=== PATIENT | male | born 1935 | race Hispanic/Latino ===

== ENCOUNTER 2017-05-23 13:38 | Emergency (ER) | payer MEDICAID, SELFPAY ==
--- NOTE | 2017-05-23 14:27 | RAD ---
CHEST 2 VIEWS: Date: 05/23/17 HISTORY: Cough. COMPARISON: Chest 1 view dated 11/30/16. FINDINGS: There is layering right pleural effusion, similar. There are linear opacities left lung base. No pneu mothorax. Cardiac silhouette and mediastinal contours similar. IMPRESSION: 1. No significant change. Layering right effusion and compressive atelectasis. 2. Mild atelectasis left lung base. POS: [facility]
[2017-05-23 14:41] LABS: Hemoglobin 14.4 g/dL (14.0-18.0); Mean Corpuscular HGB CONC 33.8 g/dL (32.0-36.0); Mean Corpuscular Hemoglobin 33.3 pg (27.0-31.0); Mean Corpuscular Volume 98.6 fl (80.0-94.0); Mean Platelet Volume 8.8 fL (7.4-10.4); Platelet Count 146 thou/uL (130-400); RBC Distribution Width 12.6 % (11.5-14.5); Red Blood Cell (RBC) Count 4.31 mill/uL (4.70-6.10)
[2017-05-23 15:00] LABS: Band 4 % (5-11); Eosinophils 5 % (0-10); Lymphocytes 4 % (21-51); MDiff Complete? YES; Monocytes 9 % (0-10); Neutrophil 78 % (42-75); PLT Morphology Comment Appears Adequate
[2017-05-23 15:01] LABS: ALT (SGPT) 22 U/L (8-55); AST (SGOT) 28 U/L (5-34); Albumin 3.5 g/dL (3.4-4.8); Alkaline Phosphatase 82 U/L (40-150); Anion Gap 10 mmol/L (10-20); BUN (Urea Nitrogen) 19 mg/dL (8.4-25.7); Bilirubin, Total 0.7 mg/dL (0.2-1.2); Calc. Creatinine Clearance 0 mL/min (70-130); Calcium 8.8 mg/dL (7.8-10.44); Carbon Dioxide 28 mmol/L (23-31); Chloride 103 mmol/L (98-107); Estimated GFR-MDRD 65; Globulin 3.1 g/dL (2.4-3.5); Glucose 77 mg/dL (83-110); Potassium 4.4 mmol/L (3.5-5.1); Protein, Total 6.6 g/dL (5.8-8.1); Sodium 137 mmol/L (136-145)
[2017-05-23] MEDS ORDERED: traMADol HCl 50 MG TAB ONE (17:54)
--- NOTE | 2017-05-23 18:28 | RAD ---
TWO VIEWS OF THE LEFT HIP 05/23/17 COMPARISON: None. HISTORY: Fall with left hip pain. FINDINGS: Two views left hip shows no evidence of acute fracture or dislocation. No significant degenerative ch anges are seen. Vascular calcifications are present. IMPRESSION: Unremarkable exam. POS: [facility]
[2017-05-23 19:05] LABS: Troponin I 0.016 ng/mL (< 0.028)
--- NOTE | 2017-05-23 19:17 | RAD ---
THREE VIEWS LUMBOSACRAL SPINE 05/23/17 COMPARISON: None. HISTORY: Fall with back and left hip pain. FINDINGS: Three views of the lumbosacral spine shows normal height and alignment of the vertebral bodies withou t fracture or subluxation. The intervertebral discs are narrowed in the lower lumbosacral spine. Mode rate osteophytes are seen throughout the lumbar spine. Posterior facet arthrosis is seen throughout t he lumbar spine. IMPRESSION: Moderate degenerative changes of the lumbar spine without acute osseous abnormality. POS: [facility]
--- NOTE | 2017-05-23 19:25 | CT ---
CT OF THE BRAIN WITHOUT CONTRAST: 05/23/17 COMPARISON: None. HISTORY: Flu-like symptoms with head trauma. Headache. TECHNIQUE: Multiple contiguous axial images were obtained in a CT of the brain without contrast. FINDINGS: There is remote infarction in the left basal ganglia. There are scattered hypodensities in the subcor tical and periventricular white matter likely secondary to small vessel ischemic disease. No new larg e confluent infarction is seen. There is no evidence of hydrocephalus, intracranial hemorrhage or ext ra-axial fluid collection. The calvarium and overlying soft tissues are unremarkable. The visualized paranasal sinuses and masto id air cells are well aerated. IMPRESSION: No evidence of acute intracranial abnormality. POS: [facility]
--- NOTE | 2017-05-23 19:40 | CT ---
CT CERVICAL SPINE WITHOUT CONTRAST 05/23/17 COMPARISON: None. HISTORY: Headache and neck pain after trauma. Flu-like symptoms. TECHNIQUE: Multiple contiguous axial images were obtained in a CT of the cervical spine without contrast. Sagitt al and coronal reformats were performed. FINDINGS: There are moderate to severe degenerative changes throughout the cervical spine. The vertebral bodies demonstrate normal height and alignment without acute or subluxation. No prevertebral soft tissue sw elling is seen. The posterior facets are well aligned. Normal alignment of the skull base with the cervical spine is seen. IMPRESSION: Degenerative changes of the cervical spine without acute osseous abnormality. POS: [facility]
[2017-05-23 19:45] LABS: Bilirubin Negative (Negative); Blood, Urine Negative (Negative); Clarity CLEAR (Clear); Glucose, Urine (Dipstick) Negative (Negative); Leukocyte Small (Negative); Nitrite Positive (Negative); Protein, Urine (Dipstick) Negative (Neg-Trace); Specific Gravity, Urine 1.012 (1.002-1.036); pH, Urine 6.5 (5.0-9.0)
[2017-05-23 19:47] LABS: Bacteria/HPF 2+ HPF (None Seen); Hyaline Casts/LPF 0-3 HYALINE CAST LPF (0-3 Hyaline); RBC/HPF None Seen HPF (0-3); Squamous Epithelial 0-3 HPF (0-3)
== END 2017-05-23 19:47 | disposition home or self-care (01) ==
LOC: ERS 13:38
DX: R05 Cough (principal); E78.5 Hyperlipidemia, unspecified; I10 Essential (primary) hypertension; F32.9 Major depressive disorder, single episode, unspecified; M79.1 Myalgia; R51 Headache; I25.2 Old myocardial infarction; Z87.891 Personal history of nicotine dependence
CPT/HCPCS: 36415; 70450; 71046; 72100; 72125; 80053; 81003; 81015; 82553; 83605; 84484; 85025; 87077; 87086; 87186

== ENCOUNTER 2018-05-25 17:42 | Emergency (ER) | payer MEDICARE, MEDICAID ==
[2018-05-25 19:17] LABS: #Lymphocytes 0.8 thou/uL (1.20-3.40); #Monocytes 0.5 thou/uL (0.11-0.59); #Neutrophils 6.1 thou/uL (1.40-6.50); %Basophils 0.4 % (0.0-1.0); %Eosinophils 0.4 % (0.0-10.0); %Monocytes 6.9 % (0.0-10.0); %Neutrophils 81.3 % (42.0-75.0); Hemoglobin 15.1 g/dL (14.0-18.0); Mean Corpuscular HGB CONC 32.5 g/dL (32.0-36.0); Mean Corpuscular Hemoglobin 31.9 pg (27.0-31.0); Mean Platelet Volume 8.8 fL (7.4-10.4); Platelet Count 173 thou/uL (130-400); RBC Distribution Width 12.2 % (11.5-14.5); Red Blood Cell (RBC) Count 4.75 mill/uL (4.70-6.10); White Blood Cell (WBC) Count 7.5 thou/uL (4.8-10.8)
--- NOTE | 2018-05-25 19:20 | RAD ---
AP VIEW CHEST: 05/25/2018 HISTORY: Fall with chest pain. COMPARISON: 11/30/2016 FINDINGS: AP view chest demonstrates sternotomy wires seen. Cardiomegaly is noted. There is a prosthetic card iac valve seen. Small bilateral pleural effusions are seen. Mild pulmonary vascular congestion is seen. IMPRESSION: 1. Small bilateral pleural effusions and pulmonary vascular congestion is seen. 2. Bibasilar areas of patchy density, possibly representing areas of atelectasis and/or pneumonia. POS: [facility]
--- NOTE | 2018-05-25 19:23 | CT ---
CT BRAIN: HISTORY: Fall with head trauma. COMPARISON: 05/23/2017 TECHNIQUE: Noncontrast enhanced CT images of the brain obtained. FINDINGS: Noncontrast enhanced CT images of the brain demonstrate diffuse cortical atrophy and deep white matte r ischemic changes. An old area of stroke is seen in the left basal ganglion. No evidence of acute intracranial masses, hemorrhages, or strokes is seen. No evidence of subdural or epidural hematoma is seen. The calvarium is unremarkable. IMPRESSION: 1. Cortical atrophy and old strokes. 2. No acute intracranial pathology is seen. POS: [facility]
[2018-05-25 19:26] LABS: Prothrombin Time 22.6 SEC (12.0-14.7)
[2018-05-25 19:37] LABS: ALT (SGPT) 21 U/L (8-55); AST (SGOT) 27 U/L (5-34); Albumin 3.8 g/dL (3.4-4.8); Alkaline Phosphatase 93 U/L (40-150); Anion Gap 12 mmol/L (10-20); BUN (Urea Nitrogen) 20 mg/dL (8.4-25.7); Bilirubin, Total 0.7 mg/dL (0.2-1.2); CK (CPK) 48 U/L (30-200); Calc. Creatinine Clearance 0 mL/min (70-130); Calcium 9.4 mg/dL (7.8-10.44); Carbon Dioxide 28 mmol/L (23-31); Chloride 103 mmol/L (98-107); Estimated GFR-MDRD 67; Globulin 3.3 g/dL (2.4-3.5); Glucose 105 mg/dL (83-110); Lipase 11 U/L (8-78); Potassium 4.5 mmol/L (3.5-5.1); Protein, Total 7.1 g/dL (5.8-8.1); Sodium 138 mmol/L (136-145)
[2018-05-25] MEDS ORDERED: traMADol HCl 50 MG TAB ONE (21:35)
== END 2018-05-25 21:53 | disposition home or self-care (01) ==
LOC: ERS 17:42
DX: S09.90XA Unspecified injury of head, initial encounter (principal); E78.5 Hyperlipidemia, unspecified; I10 Essential (primary) hypertension; I25.2 Old myocardial infarction; F32.9 Major depressive disorder, single episode, unspecified; W19.XXXA Unspecified fall, initial encounter
CPT/HCPCS: 36415; 70450; 71045; 80053; 82550; 83690; 83880; 84484; 85025; 85610; 85730; 93005

== ENCOUNTER 2018-12-15 11:51 | Emergency (ER) | payer MEDICARE, MEDICAID ==
[~2018-12-15 11:51] MED LIST: ISOVUE-370 76%-LOCM 1 ML ONE
[2018-12-15 12:23] LABS: #Eosinphils 0.1 thou/uL (0.0-0.7); #Lymphocytes 1.2 thou/uL (1.20-3.40); #Monocytes 0.6 thou/uL (0.11-0.59); #Neutrophils 2.8 thou/uL (1.40-6.50); %Basophils 0.4 % (0.0-1.0); %Eosinophils 2.6 % (0.0-10.0); %Lymphocytes 25.8 % (21.0-51.0); %Neutrophils 59.2 % (42.0-75.0); Mean Corpuscular HGB CONC 33.8 g/dL (32.0-36.0); Mean Corpuscular Hemoglobin 31.9 pg (27.0-31.0); Mean Corpuscular Volume 94.5 fL (78.0-98.0); Mean Platelet Volume 9.1 fL (7.4-10.4); Platelet Count 156 thou/uL (130-400); RBC Distribution Width 13.3 % (11.5-14.5); Red Blood Cell (RBC) Count 4.37 mill/uL (4.70-6.10); White Blood Cell (WBC) Count 4.8 thou/uL (4.8-10.8)
[2018-12-15 12:51] LABS: ALT (SGPT) 36 U/L (8-55); AST (SGOT) 40 U/L (5-34); Albumin 3.6 g/dL (3.4-4.8); Alkaline Phosphatase 93 U/L (40-150); Anion Gap 11 mmol/L (10-20); BUN (Urea Nitrogen) 19 mg/dL (8.4-25.7); Bilirubin, Total 0.7 mg/dL (0.2-1.2); Calc. Creatinine Clearance 0 mL/min (70-130); Calcium 8.6 mg/dL (7.8-10.44); Carbon Dioxide 29 mmol/L (23-31); Chloride 103 mmol/L (98-107); Estimated GFR-MDRD 64; Globulin 2.8 g/dL (2.4-3.5); Glucose 95 mg/dL (83-110); Potassium 3.9 mmol/L (3.5-5.1); Protein, Total 6.4 g/dL (5.8-8.1); Sodium 139 mmol/L (136-145)
--- NOTE | 2018-12-15 12:58 | RAD ---
Exam: Chest one view HISTORY:Chest pain, 2 days ago Comparison: 05/25/2018 FINDINGS: Cardiac silhouette:Enlarged. There are sternotomy wires. Prosthetic aortic valve. Aorta: Atherosclerosis. Pulmonary vessels: Slightly prominent Costophrenic angles: Clear LUNGS: Chronic changes. No masses or consolidation. Pneumothorax: None Osseous abnormalities: None IMPRESSION: 1. Atherosclerosis. 2. Cardiomegaly. 3. Patchy interstitial opacities likely representing chronic change.
[2018-12-15 13:31] LABS: INR-International Normal Ratio 2.6; Prothrombin Time 27.3 SEC (12.0-14.7)
--- NOTE | 2018-12-15 14:00 | CT ---
CT ANGIOGRAM THORAX AND ABDOMEN WITH IV CONTRAST AND 3-D RECONSTRUCTIONS CLINICAL INDICATION: Left-sided chest pain and arm pain started 2 days ago. Generalized weakness. COMPARISON: CT abdomen and pelvis on 11/30/2016. FINDINGS: Pulmonary arteries: No filling defect is seen within the central pulmonary arteries; the segmental an d subsegmental pulmonary arteries are not well opacified, but this study was tailored for evaluation of the thoracic aorta. Aorta and vessels: There is evidence of an aortic valve replacement. The thoracic and abdominal aorta are normal in caliber without evidence of an aortic dissection. There is a normal arrangement of the great vessels at the aortic arch which are patent. The celiac and superior mesenteric arteries ar e patent. The origin the K[place]IGH is partially obscured by dense vascular calcifications but otherwise patent. A single patent left renal artery is present. There is mild narrowing involving the proximal right renal artery. The visualized iliac arteries demonstrate atherosclerotic vascular calcifications but are patent. Lungs: A small right pleural effusion is again seen. There is an elliptical area of dense consolidati on seen at the right lung base which could be related to pneumonia or possibly chronic rounded area of atelectasis. There are groundglass densities as well as linear densities within the lungs bilatera lly. This examination was obtained in expiratory phase of imaging, and findings are probably attributable to volume loss. A calcified granuloma is seen in the left lower lobe with tiny thin-walled cyst in the left upper lob e. No definite discrete noncalcified pulmonary nodule is appreciated. Mediastinum: Median sternotomy wires are present. The heart is enlarged. No mediastinal lymphadenopat hy is seen. Thyroid gland: Limited visualized portion of the thyroid gland is within normal limits. Osseous structures: Degenerative changes are seen in the thoracic and lumbar spine Chest and abdominal wall: There is evidence of gynecomastia bilaterally. A fat-containing umbilical h ernia is partially imaged. Upper abdomen: Bilateral renal cysts are again seen with subcentimeter too small to characterize hypo dense lesions also seen in each kidney also statistically likely representing cysts. The liver, spleen, pancreas, and bilateral adrenal glands demonstrate a grossly normal appearance for arterial phase of imaging. No free fluid or fluid collection is seen in the abdomen. There is no lymphadenopathy. IMPRESSION: 1. Dense vascular calcifications are seen, but the thoracic and abdominal aorta are normal in caliber without evidence of an aortic dissection. 2. Cardiomegaly. 3. Elliptical area of dense consolidation in the right lower lobe. This may be attributable to pneumo angela versus chronic rounded area of atelectasis. Clinical correlation is recommended, and follow-up evaluation is also suggested.. 4. Small right pleural effusion. 5. Additional findings are as described above.
[2018-12-15 15:32] LABS: Bacteria/HPF None Seen HPF (None Seen); Bilirubin Negative (Negative); Blood, Urine 1+ (Negative); Clarity Clear (Clear); Glucose, Urine (Dipstick) Normal (Negative); Leukocyte Negative Leu/uL (Negative); Nitrite Negative (Negative); Protein, Urine (Dipstick) Negative (Neg-Trace); Squamous Epithelial None Seen HPF (0-3); Urobilinogen Normal mg/dL (Less than 2); WBC/HPF 0-3 HPF (0-3)
[2018-12-15] MEDS ORDERED: Acetaminophen 325 MG TAB ONE (17:32)
== END 2018-12-15 20:10 | disposition home or self-care (01) ==
LOC: ERS 11:51
DX: M54.9 Dorsalgia, unspecified (principal); R53.1 Weakness; E78.00 Pure hypercholesterolemia, unspecified; E78.5 Hyperlipidemia, unspecified; I10 Essential (primary) hypertension; R33.9 Retention of urine, unspecified; I25.2 Old myocardial infarction; F32.9 Major depressive disorder, single episode, unspecified
CPT/HCPCS: 36415; 51702; 71045; 71275; 80053; 81003; 81015; 83880; 84484; 85025; 85610; 93005; 96360; Q9966

== ENCOUNTER 2019-06-30 13:24 | Inpatient (IN) | payer MEDICARE, MEDICAID ==
--- NOTE | 2019-06-30 15:18 | RAD ---
PORTABLE CHEST 1 VIEW: Date: 06/30/2019 Time: 1422 hours HISTORY: Fever and cough. FINDINGS/IMPRESSION: Comparison made with exam of 12/15/2018. Changes of median sternotomy again seen. The heart size is stable. Right-sided small pleural effusion is present. No pneumothoraces or lobar consolidation identified. No evidence of nayeli pulmonary miko a. POS: [facility]
[2019-06-30 15:20] LABS: Hemoglobin 14.1 g/dL (14.0-18.0); Mean Corpuscular HGB CONC 33.2 g/dL (32.0-36.0); Mean Corpuscular Hemoglobin 31.1 pg (27.0-31.0); Mean Corpuscular Volume 93.8 fL (78.0-98.0); Mean Platelet Volume 9.7 fL (7.4-10.4); Platelet Count 138 thou/uL (130-400); Red Blood Cell (RBC) Count 4.55 mill/uL (4.70-6.10); White Blood Cell (WBC) Count 4.2 thou/uL (4.8-10.8)
[2019-06-30 15:37] LABS: ALT (SGPT) 85 U/L (8-55); AST (SGOT) 104 U/L (5-34); Albumin 3.6 g/dL (3.4-4.8); Alkaline Phosphatase 133 U/L (40-110); Anion Gap 11 mmol/L (10-20); BUN (Urea Nitrogen) 18 mg/dL (8.4-25.7); Bilirubin, Total 0.8 mg/dL (0.2-1.2); Calc. Creatinine Clearance 0 mL/min (70-130); Calcium 8.6 mg/dL (7.8-10.44); Carbon Dioxide 29 mmol/L (23-31); Chloride 101 mmol/L (98-107); Estimated GFR-MDRD 65; Glucose 92 mg/dL (83-110); Potassium 4.1 mmol/L (3.5-5.1); Protein, Total 6.6 g/dL (5.8-8.1); Sodium 137 mmol/L (136-145)
[2019-06-30 15:44] LABS: Band 3 % (5-11); Eosinophils 5 % (0-10); Lymphocytes 24 % (21-51); MDiff Complete? YES; Monocytes 9 % (0-10); Neutrophil 53 % (42-75); Platelet Morphology Comment Appears Adequate; RBC Morphology Normal; Reactive Lymphocytes 2 % (0-10)
--- NOTE | 2019-06-30 16:40 | CT ---
CT chest noncontrast HISTORY: Cough. Pneumonia. COMPARISON: 12/15/2018. FINDINGS: Small amount right pleural fluid is similar in appearance to the prior study. Chronic infil trate within the posterior base of the right lower lobe, containing some air bronchograms, is also unchanged. There is linear atelectasis within the right upper lobe. Minimal pericardial fluid at the anterior upper mediastinum. Dense calcification throughout the arter ial structures. Lack of contrast limits evaluation of the soft tissues. Cysts arise from the partially visualized kid neys on the inferior most images. There are prominent degenerative changes of the thoracic spine. 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 Large hemangioma within the T6 vertebra. IMPRESSION: Chronic right lower lobe infiltrate. Small amount right pleural fluid. Scattered areas of parenchymal scarring. Findings are stable compared to 12/15/2018 study. Prominent atherosclerosis.
[2019-06-30 16:55] LABS: INR-International Normal Ratio 1.8; Prothrombin Time 21.1 SEC (12.0-14.7)
--- NOTE | 2019-06-30 17:21 | CT ---
CT Brain WO Con History: Altered mental status. Fall. Comparison: CT brain May 25, 2018 Findings: No acute hemorrhage or infarct. No midline shift or mass effect. Ventricular size and extra -axial CSF spaces are normal. Calvarium is intact. Mild mucosal thickening of the maxillary sinuses. The mastoids are clear. Old left basal ganglia infarct along the external capsule. Globes are intact with calcification of the right sclera medial margin. Impression: No acute posttraumatic intracranial sequelae.
[2019-06-30] MEDS ORDERED: Doxycycline Hyclate 200 MG in Sodium Chloride 0.9% 250 ML 250 ML IVPB SCH (19:30)
[2019-06-30] MEDS ORDERED: Acetaminophen 325 MG TAB PO PRN (22:54)
[2019-06-30] MEDS ORDERED: Bacteriostatic Water 30 ML VIAL FS PRN (22:54)
[2019-06-30] MEDS ORDERED: Ondansetron PF 4 MG/2 ML Vial IVP PRN (22:54)
[2019-06-30] MEDS ORDERED: Ondansetron ODT 4 MG TAB SL PRN (22:54)
[2019-06-30] MEDS ORDERED: methylPREDNISolone Sod Succ/PF 125 MG/2 ML VIAL IVP SCH (23:00)
[2019-06-30 23:01] VITALS: BMI 31.0
[2019-07-01] MEDS ORDERED: Simvastatin 20 MG TAB PO SCH (00:15)
[2019-07-01] MEDS ORDERED: Alprazolam [Alprazolam Xr] 1 MG PO SCH (01:00)
[2019-07-01] MEDS ORDERED: FLU VACC TS2019-20(65YR UP)/PF 180 MCG/0.5 ML SYRINGE IM ONE (09:00)
[2019-07-01] MEDS ORDERED: Acetaminophen/Codeine 30-300mg Tablet PO PRN (09:16)
[2019-07-01] MEDS ORDERED: Ondansetron ODT 4 MG TAB PO PRN ×2 (09:16)
[2019-07-01] MEDS ORDERED: Ondansetron PF 4 MG/2 ML Vial IVP PRN ×2 (09:16)
[2019-07-01] MEDS ORDERED: hydrALAZINE 20 MG/ML VIAL SLOW IVP PRN (09:16)
--- NOTE | 2019-07-01 10:10 | HP ---
PRIMARY CARE PHYSICIAN: I am not sure who the primary care physician is. CHIEF COMPLAINT: Cough and congestion and fell a couple of days ago. HISTORY OF PRESENT ILLNESS: The history of present illness is extremely limited. It is taken from the patient's son, Darvin, over the phone. The patient is currently extremely sleepy and every time I talked to him, he will wake up for a minute and say "ya, ya" and then go right back to sleep. His grandson is also at the bedside, but he does not know any information. I spoke with aDrvin and he tells me that his father fell a couple of days ago. He says he was just walking and then just fell down. There was no mention of loss of consciousness. He says he believed he may have hurt himself. He thinks he fell and hit his elbow and his head. They also note that he has been having cough and congestion for about 4 days. They said that he was having some pain in his chest when he breathes. No fever. No chills. No nausea. No vomiting. Essentially, no other symptoms. He was evaluated in the ER here. They did a CT scan of the brain, which was essentially negative. They also did a chest x-ray as well as a CT scan of the chest, both of which showed possibly a chronic infiltrate in the right base versus atelectasis and is reported to have had no change from a previous x-ray. He was afebrile and his lab work was essentially unremarkable except for slightly elevated transaminases and he was placed in observation for further evaluation. REVIEW OF SYSTEMS: This is unobtainable as the patient is currently very sleepy. PAST MEDICAL HISTORY: Taken from the records and also discussion with the son and includes hypertension and hypercholesterolemia. PAST SURGICAL HISTORY: He has had a cholecystectomy; bypass surgery, two vessel; and prostate surgery. ALLERGIES: NO KNOWN DRUG ALLERGIES. SOCIAL HISTORY: He is a nonsmoker and nondrinker. He is , has 12 children. FAMILY HISTORY: No known heritable diseases. MEDICATIONS: Taken from the records and includes; 1. Warfarin 2 mg at bedtime. 2. Simvastatin 20 mg at bedtime. 3. Ditropan 5 mg at bedtime. 4. Omeprazole 20 mg daily. 5. Gabapentin 800 mg twice a day. 6. Lasix 20 mg daily. 7. Amiodarone 200 mg daily. 8. Alprazolam 1 mg at bedtime. 9. Tylenol no. 3 q.6 as needed. PHYSICAL EXAMINATION: GENERAL: He will wake up, but falls back to sleep. He appears to be in no acute distress. VITAL SIGNS: Blood pressure is 117/72, heart rate 66, respiratory rate of 20, and temperature is 97.8. HEENT: Pupils are equal, round, and reactive. Extraocular muscles are intact. Sclerae anicteric. Throat; no erythema, no exudates. NECK: No adenopathy. No bruits. LUNGS: Clear to auscultation. No wheezing. No rales. No rhonchi. CARDIOVASCULAR: He has a normal S1 and S2. No S3 or S4. No murmurs or clicks. No rubs. ABDOMEN: Obese, soft, nontender, and nondistended. Positive for bowel sounds. No rebound. No guarding. EXTREMITIES: nonpitting edema. No calf tenderness. No joint effusions. NEUROLOGIC: He is moving all extremities. SKIN AND INTEGUMENT: He has some chronic venous stasis changes, but otherwise negative. LABORATORY DATA: The CBC; the white blood cell count is 4.2, hemoglobin 14.1, hematocrit is 42.7, and platelet count is 138. INR is 1.8. Chemistry; sodium 137, potassium 4.1, chloride is 101, CO2 is 29, BUN of 18, creatinine 1.08, glucose is 92, alkaline phosphatase is 133, AST 104, and ALT is 85. ProBNP is 141. ASSESSMENT AND PLAN: 1. This is a pleasant 83-year-old gentleman, who suffered a fall. It appears as if he has had no significant sequelae as a result of the fall and also has been having some cough and congestion. CT of the chest is clear. It is possible he may have had some mild bronchitis. He will be admitted to observation, monitored overnight. We will continue treatment for bronchitis including the doxycycline and DuoNeb and steroids. 2. Status post fall. It is noted he is on Coumadin and we will monitor his INR. There was no evidence of any bleeding by the CT scan. 3. Hypertension. This appears to be clinically stable at this time. Reconciling continuous home medications and we will re-evaluate him later this afternoon. If he is more awake and alert and at his baseline, then I suspect he can be discharged home on an oral antibiotic and close outpatient followup. Job ID: [id number]
[2019-07-01] MEDS: Sodium Chloride 0.9% 1,000 ML IV SCH ×2 (10:13→21:30)
[2019-07-01 10:18] LABS: INR-International Normal Ratio 1.9; Prothrombin Time 21.4 SEC (12.0-14.7)
[2019-07-01] MEDS: Acetaminophen 325 MG TAB PO PRN ×2 (14:48→22:37)
[2019-07-01] MEDS: Warfarin Sodium 2 MG TAB PO SCH (18:00)
[2019-07-01] MEDS: Doxycycline 100 MG CAP PO SCH (21:29)
[2019-07-01] MEDS: Simvastatin 20 MG TAB PO SCH (21:30)
[2019-07-01] MEDS: Gabapentin 400 MG CAP PO SCH (21:30)
[2019-07-01] MEDS: Oxybutynin 5 MG TAB PO SCH (21:30)
[2019-07-01] MEDS: Alprazolam [Alprazolam Xr] 1 MG PO SCH (22:37)
[2019-07-02] MEDS: Sodium Chloride 0.9% 1,000 ML IV SCH (05:18)
[2019-07-02 06:15] LABS: INR-International Normal Ratio 1.9; Prothrombin Time 21.9 SEC (12.0-14.7)
[2019-07-02 07:53] LABS: #Lymphocytes 0.6 thou/uL (1.20-3.40); #Monocytes 0.7 thou/uL (0.11-0.59); #Neutrophils 4.9 thou/uL (1.40-6.50); %Basophils 0.3 % (0.0-1.0); %Eosinophils 0.1 % (0.0-10.0); %Lymphocytes 10.3 % (21.0-51.0); %Monocytes 10.8 % (0.0-10.0); %Neutrophils 78.5 % (42.0-75.0); Mean Corpuscular HGB CONC 32.8 g/dL (32.0-36.0); Mean Corpuscular Hemoglobin 31.4 pg (27.0-31.0); Mean Corpuscular Volume 95.7 fL (78.0-98.0); Mean Platelet Volume 9.3 fL (7.4-10.4); Platelet Count 134 thou/uL (130-400); Red Blood Cell (RBC) Count 4.14 mill/uL (4.70-6.10); White Blood Cell (WBC) Count 6.2 thou/uL (4.8-10.8)
[2019-07-02 08:01] LABS: Anion Gap 12 mmol/L (10-20); BUN (Urea Nitrogen) 20 mg/dL (8.4-25.7); Calc. Creatinine Clearance 79 mL/min (70-130); Calcium 8.2 mg/dL (7.8-10.44); Carbon Dioxide 25 mmol/L (23-31); Chloride 106 mmol/L (98-107); Estimated GFR-MDRD 85; Glucose 99 mg/dL (83-110); Potassium 3.7 mmol/L (3.5-5.1); Sodium 139 mmol/L (136-145)
[2019-07-02] MEDS: Amiodarone 200 MG TAB PO SCH (08:44)
[2019-07-02] MEDS: Gabapentin 400 MG CAP PO SCH ×2 (08:44→21:28)
[2019-07-02] MEDS: Furosemide 20 MG TAB PO SCH (08:44)
[2019-07-02] MEDS: Doxycycline 100 MG CAP PO SCH (08:44)
--- NOTE | 2019-07-02 09:09 | PDOC.HOSPP ---
- Subjective Encounter Date: 07/02/19 Encounter Time: 09:07 Subjective: Mr. Skinner was seen today in follow-up. He says he continues to have a sore throat, and cough. He is breathing a bit better. He was up to walk yesterday, but was very weak as reported by his nurse. - Objective Vital Signs & Weight: Vital Signs (12 hours) Temp Pulse Resp BP BP Pulse Ox 07/02/19 08:39 110/69 07/02/19 07:32 98 F 65 17 95 07/02/19 05:10 97.6 F 64 17 103/63 96 07/02/19 02:46 67 16 97 07/02/19 00:47 63 16 100 07/02/19 00:00 99.0 F 63 18 117/70 100 Weight Admit Weight 192 lb 7 oz Weight 192 lb 7 oz I&O: 07/01/19 07/02/19 07/03/19 06:59 06:59 06:59 Intake Total 1500 Output Total 471 Balance -471 1500 Result Diagrams: 07/02/19 07:38 07/02/19 07:38 Hospitalist ROS - Medication Medications: Active Medications Generic Name Dose Route Start Last Admin Trade Name Freq PRN Reason Stop Dose Admin Acetaminophen 650 mg 07/01/19 09:16 07/01/19 22:37 Tylenol PO 650 mg Q4H PRN Administration Headache/Fever/Mild Pain (1-3) Albuterol/Ipratropium 3 ml 07/01/19 13:00 07/02/19 02:46 Duoneb NEB 3 ml [id number] PORTIA Administration Amiodarone HCl 200 mg 07/02/19 09:00 07/02/19 08:44 Cordarone PO 200 mg DAILY PORTIA Administration Doxycycline Hyclate 100 mg 07/01/19 21:00 07/02/19 08:44 Vibramycin PO 100 mg BID PORTIA Administration Furosemide 20 mg 07/02/19 09:00 07/02/19 08:44 Lasix PO 20 mg DAILY PORTIA Administration Gabapentin 800 mg 07/01/19 21:00 07/02/19 08:44 Neurontin PO 800 mg BID PORTIA Administration Oxybutynin Chloride 5 mg 07/01/19 21:00 07/01/19 21:30 Ditropan PO 5 mg HS PORTIA Administration Alprazolam [ 1 each 07/01/19 21:00 07/01/19 22:37 Alprazolam Xr] 1 Mg PO 1 each HS PORTIA Administration Simvastatin 20 mg 07/01/19 21:00 07/01/19 21:30 Zocor PO 20 mg HS PORTIA Administration Sterile Water 2 ml 06/30/19 22:54 07/01/19 00:15 Bacteriostatic Water FS 2 ml PRN PRN Administration RECONSTITUTION Warfarin Sodium 2 mg 07/01/19 17:00 07/01/19 18:00 Coumadin PO 2 mg 1700 PORTIA Administration - Exam Eye: PERRL Heart: RRR, no murmur, no gallops, no rubs, normal peripheral pulses Respiratory: no rales, rhonchi (Bilateral wheezing and rhonchi), wheezes Gastrointestinal: soft, non-tender, non-distended, normal bowel sounds, no palpable masses, no hepatomegaly Extremities: no cyanosis, no edema Hosp A/P (1) Acute bronchitis Code(s): J20.9 - ACUTE BRONCHITIS, UNSPECIFIED Status: Acute (2) Hypertension Code(s): I10 - ESSENTIAL (PRIMARY) HYPERTENSION Status: Acute (3) Atrial fibrillation Code(s): I48.91 - UNSPECIFIED ATRIAL FIBRILLATION Status: Chronic (4) Chronic anticoagulation Code(s): Z79.01 - MCC (CURRENT) USE OF ANTICOAGULANTS Status: Chronic (5) History of heart valve replacement Code(s): Z95.2 - PRESENCE OF PROSTHETIC HEART VALVE Status: Chronic - Plan * Acute respiratory failure- due to bronchitis- this has not improved much overnight- will change his antibiotics to Rocephin and Azithromycin- and will need to monitor PT INR carefully due to the Azithromycin * Will add a one time dose of Prednisone * Will discontinue IV fluids * AFIB- his heart rate is stable * HTN- blood pressure is low normal * Generalized weakness- with recent fall- he is still quite weak- will continue PT/OT * Consideration for change to inpatient status, as patient is elderly and has not yet responded adequately to therapy for a safe discharge home.
[2019-07-02] MEDS ORDERED: Promethazine 25 MG TAB PO PRN (09:11)
[2019-07-02] MEDS ORDERED: predniSONE 20 MG TAB PO SCH (09:15)
[2019-07-02] MEDS: cefTRIAXone\\ROCEPHIN 1 GM in Sodium Chloride 0.9% 100 ML IVPB SCH (10:06)
[2019-07-02] MEDS: Guaifenesin DM 100-10/5 ML UDCUP PO PRN ×2 (10:07→17:08)
[2019-07-02] MEDS: Azithromycin 500 MG in Sodium Chloride 0.9% 250 ML 250 ML IVPB SCH (10:08)
[2019-07-02] MEDS: Benzonatate 100 MG CAP PO SCH ×2 (15:48→21:28)
[2019-07-02] MEDS: Warfarin Sodium 2 MG TAB PO SCH (16:21)
[2019-07-02] MEDS: Acetaminophen 325 MG TAB PO PRN (21:27)
[2019-07-02] MEDS: Alprazolam [Alprazolam Xr] 1 MG PO SCH (21:28)
[2019-07-02] MEDS: Simvastatin 20 MG TAB PO SCH (21:28)
[2019-07-02] MEDS: Oxybutynin 5 MG TAB PO SCH (21:28)
--- NOTE | 2019-07-03 02:14 | PDOC.EVN ---
Event Note - Event Note Event Note: Notified by RN, patient with sob and wheezing. On exam, he is found resting comfortably but audible wheezing. States he doesnt feel sob but does feel like his breathing is noisy. He denies any chest pain. States he feels congested and having a hard time bringing up phlegm. Has a productive cough. [place] better once sat upright but with diffuse inspiratory/expiratory wheezing. Last duo neb was 2 hrs ago. No significant improvement. Per family member his breathing has been "noisy" since earlier today. Will obtain CXR and Abg. Currently sats 94% on RA. He is on Abx, pred daily and lasix 20 mg daily. CXR concerning for CHF exacerbation, will give Lasix 20 mg IV x 1. Continue to monitor O2 sats. Continue duo nebs Q4H.
[2019-07-03 02:21] LABS: Actual Bicarbonate (HCO3a) 26.8 mEq/L (22-28); Base Excess (BEa) 2.2 mEq/L (-2.0 to +3.0); CO2 Tension 41.7 mmHg (35.0-45.0); Calcium, Ionized 1.11 mmol/L (1.12-1.30); Carboxyhemoglobin (COHb) 0.8 gm% (0.0-3.0); Hemoglobin (Hb) 13.1 g/dL (14.0-18.0); Potassium - ABG Lab 3.98 mmol/L (3.70-5.30); pH, Arterial 7.43 (7.35-7.45)
[2019-07-03 02:30] LABS: ALV-art Gradient 38.105 (0-20); O2 Tension (PaO2) 59.5 mmHg (> 60.0); Puncture Site RRA
[2019-07-03] MEDS ORDERED: Furosemide 20 MG/2 ML VIAL SLOW IVP SCH (02:45)
[2019-07-03 02:56] LABS: #Lymphocytes 0.6 thou/uL (1.20-3.40); #Monocytes 0.3 thou/uL (0.11-0.59); #Neutrophils 3.7 thou/uL (1.40-6.50); %Eosinophils 0.2 % (0.0-10.0); %Lymphocytes 12.4 % (21.0-51.0); %Monocytes 7.3 % (0.0-10.0); %Neutrophils 80.2 % (42.0-75.0); Hemoglobin 12.8 g/dL (14.0-18.0); Mean Corpuscular HGB CONC 33.1 g/dL (32.0-36.0); Mean Corpuscular Hemoglobin 31.2 pg (27.0-31.0); Mean Corpuscular Volume 94.3 fL (78.0-98.0); Mean Platelet Volume 9.6 fL (7.4-10.4); Platelet Count 125 thou/uL (130-400); White Blood Cell (WBC) Count 4.6 thou/uL (4.8-10.8)
[2019-07-03 03:11] LABS: Lactic Acid 1.4 mmol/L (0.5-2.2)
[2019-07-03 03:14] LABS: Anion Gap 11 mmol/L (10-20); BUN (Urea Nitrogen) 24 mg/dL (8.4-25.7); Calc. Creatinine Clearance 87 mL/min (70-130); Calcium 8.3 mg/dL (7.8-10.44); Carbon Dioxide 27 mmol/L (23-31); Chloride 107 mmol/L (98-107); Estimated GFR-MDRD Greater than 90; Glucose 101 mg/dL (83-110); Sodium 141 mmol/L (136-145)
[2019-07-03 06:32] LABS: INR-International Normal Ratio 2.1; Prothrombin Time 23.2 SEC (12.0-14.7)
--- NOTE | 2019-07-03 08:53 | RAD ---
Chest one view HISTORY: Dyspnea. Wheezing. COMPARISON: 06/30/2019. FINDINGS: Cardiac silhouette is magnified and upper limits of normal in size. Pulmonary vasculature i s now engorged with widespread reticulonodular interstitial prominence and patchy bilateral perihilar and bibasilar infiltrates. Blunting of the right lateral costophrenic angle. Mediastinum is midline with postoperative changes and aortic calcification. No lobar consolidation or evidence of pneumothorax. IMPRESSION: Pulmonary vascular congestion. Borderline cardiomegaly. Atherosclerosis.
[2019-07-03] MEDS: Gabapentin 400 MG CAP PO SCH ×2 (08:59→21:23)
[2019-07-03] MEDS: cefTRIAXone\\ROCEPHIN 1 GM in Sodium Chloride 0.9% 100 ML IVPB SCH (08:59)
[2019-07-03] MEDS: Furosemide 20 MG TAB PO SCH (08:59)
[2019-07-03] MEDS: Benzonatate 100 MG CAP PO SCH ×3 (08:59→21:23)
[2019-07-03] MEDS: Amiodarone 200 MG TAB PO SCH (08:59)
[2019-07-03] MEDS: Azithromycin 500 MG in Sodium Chloride 0.9% 250 ML 250 ML IVPB SCH (09:06)
--- NOTE | 2019-07-03 12:44 | PDOC.HOSPP ---
- Subjective Encounter Date: 07/03/19 Encounter Time: 08:45 Subjective: still has cough and is unable to clear secretions with rattling in his throat daughter from [place] at bedside no h/o travel or contact with sick people, he lives in [facility]. is healthy with no resp symptoms patient says he is feeling better and wants to go home no prior h/o choking while eating per daughter last pna was many years ago - Objective Vital Signs & Weight: Vital Signs (12 hours) Temp Pulse Resp BP BP Pulse Ox 07/03/19 12:04 98.0 F 67 18 111/61 89 L 07/03/19 09:10 94 L 07/03/19 08:11 98.0 F 70 16 105/68 94 L 07/03/19 06:47 66 18 92 L 07/03/19 05:01 98.7 F 65 20 99/67 96 07/03/19 04:54 69 16 95 07/03/19 02:35 97.7 F 65 17 129/80 96 07/03/19 00:54 62 16 92 L Weight Admit Weight 192 lb 7 oz Weight 192 lb 7 oz I&O: 07/02/19 07/03/19 07/04/19 06:59 06:59 06:59 Intake Total 1500 1070 Output Total 800 Balance 1500 270 Result Diagrams: 07/03/19 02:46 07/03/19 02:46 Hospitalist ROS - Medication Medications: Active Medications Generic Name Dose Route Start Last Admin Trade Name Freq PRN Reason Stop Dose Admin Acetaminophen 650 mg 07/01/19 09:16 07/02/19 21:27 Tylenol PO 650 mg Q4H PRN Administration Headache/Fever/Mild Pain (1-3) Albuterol/Ipratropium 3 ml 07/01/19 09:16 07/03/19 04:54 Duoneb NEB 3 ml Q4H PRN Administration SOB &/or Wheezing Albuterol/Ipratropium 3 ml 07/01/19 13:00 07/03/19 06:47 Duoneb NEB 3 ml [id number] PORTIA Administration Amiodarone HCl 200 mg 07/02/19 09:00 07/03/19 08:59 Cordarone PO 200 mg DAILY PORTIA Administration Benzonatate 100 mg 07/02/19 15:00 07/03/19 08:59 Tessalon PO 100 mg TID PORTIA Administration Furosemide 20 mg 07/02/19 09:00 07/03/19 08:59 Lasix PO 20 mg DAILY PORTIA Administration Gabapentin 800 mg 07/01/19 21:00 07/03/19 08:59 Neurontin PO 800 mg BID PORTIA Administration Guaifenesin/Dextromethorphan 15 ml 07/02/19 09:04 07/02/19 17:08 Robitussin Dm PO 15 ml Q4H PRN Administration Cough Azithromycin 500 mg/ Sodium 250 mls @ 250 mls/hr 07/02/19 10:00 07/03/19 09: 06 Chloride IVPB 250 mls 1000 PORTIA Administration Ceftriaxone Sodium 1 gm/ 100 mls @ 200 mls/hr 07/02/19 09:00 07/03/19 08:59 Sodium Chloride IVPB 100 mls 0900 PORTIA Administration Oxybutynin Chloride 5 mg 07/01/19 21:00 07/02/19 21:28 Ditropan PO 5 mg HS PORTIA Administration Alprazolam [ 1 each 07/01/19 21:00 07/02/19 21:28 Alprazolam Xr] 1 Mg PO 1 each HS PORTIA Administration Simvastatin 20 mg 07/01/19 21:00 07/02/19 21:28 Zocor PO 20 mg HS PORTIA Administration Sodium Chloride 10 ml 07/02/19 21:00 07/03/19 09:00 Flush - Normal Saline IVF 10 ml Q12HR PORTIA Administration Sterile Water 2 ml 06/30/19 22:54 07/01/19 00:15 Bacteriostatic Water FS 2 ml PRN PRN Administration RECONSTITUTION Warfarin Sodium 2 mg 07/01/19 17:00 07/02/19 16:21 Coumadin PO 2 mg 1700 PORTIA Administration - Exam General Appearance: awake alert Eye: PERRL, anicteric sclera ENT: no oropharyngeal lesions, moist mucosa Neck: supple, no JVD Heart: RRR, no murmur Respiratory: no rales, rhonchi, wheezes Gastrointestinal: soft, non-tender, non-distended, normal bowel sounds Extremities: no cyanosis, no edema Neurological: cranial nerve grossly intact, no focal deficits Psychiatric: normal affect, A&O x 3 Hosp A/P (1) Pneumonia Code(s): J18.9 - PNEUMONIA, UNSPECIFIED ORGANISM Status: Acute Qualifiers: Pneumonia type: aspiration pneumonia Aspiration pneumonia type: unspecified Laterality: right Lung location: lower lobe of lung Qualified Code(s): J69.0 - Pneumonitis due to inhalation of food and vomit (2) Acute respiratory failure with hypoxia Code(s): J96.01 - ACUTE RESPIRATORY FAILURE WITH HYPOXIA Status: Resolved (3) h/o avr Status: Chronic (4) Dyslipidemia Code(s): E78.5 - HYPERLIPIDEMIA, UNSPECIFIED Status: Chronic (5) Hypertension Code(s): I10 - ESSENTIAL (PRIMARY) HYPERTENSION Status: Chronic Qualifiers: Hypertension type: essential hypertension Qualified Code(s): I10 - Essential (primary) hypertension (6) Atrial fibrillation Code(s): I48.91 - UNSPECIFIED ATRIAL FIBRILLATION Status: Chronic Qualifiers: Atrial fibrillation type: paroxysmal Qualified Code(s): I48.0 - Paroxysmal atrial fibrillation - Plan old CT chest imagings were reviewed, has chr opacity in right lower zone has old left basal ganglia cva, unclear if he has aspiration issues, will get speech eval initial flu screen was -ve, will get viral pcr is on zithromax and ceftriaxone, will add steroids, nebs continue amiodarone, lasix, zocor, coumadin, neurontin and oxybutynin hemostable dc plan in am if stable d/w daughter in detail at bedside
[2019-07-03] MEDS: Guaifenesin DM 100-10/5 ML UDCUP PO PRN (13:55)
[2019-07-03] MEDS: Warfarin Sodium 2 MG TAB PO SCH (16:22)
[2019-07-03] MEDS: Oxybutynin 5 MG TAB PO SCH (21:23)
[2019-07-03] MEDS: Simvastatin 20 MG TAB PO SCH (21:23)
[2019-07-03] MEDS: Alprazolam [Alprazolam Xr] 1 MG PO SCH (21:24)
[2019-07-04] MEDS: Gabapentin 400 MG CAP PO SCH (08:12)
[2019-07-04] MEDS: Amiodarone 200 MG TAB PO SCH (08:12)
[2019-07-04] MEDS: Furosemide 20 MG TAB PO SCH (08:12)
[2019-07-04] MEDS: Benzonatate 100 MG CAP PO SCH (08:12)
[2019-07-04] MEDS: cefTRIAXone\\ROCEPHIN 1 GM in Sodium Chloride 0.9% 100 ML IVPB SCH (08:13)
[2019-07-04 10:35] VITALS: BP 103/63; TEMP 97.7
[2019-07-04] MEDS: Azithromycin 500 MG in Sodium Chloride 0.9% 250 ML 250 ML IVPB SCH (10:37)
--- NOTE | 2019-07-04 13:58 | DIS ---
DATE OF ADMISSION: 06/30/2019 DATE OF DISCHARGE: 07/04/2019 DISCHARGE DISPOSITION: To home. PRIMARY DISCHARGE DIAGNOSES: Pneumonia, acute respiratory failure with hypoxia resolved, history of aortic valve replacement, hypertension, dyslipidemia, and history of paroxysmal atrial fibrillation. PROCEDURES DONE DURING HOSPITALIZATION: CT chest without contrast done showed chronic right lower lobe infiltrate when compared to prior CAT scan done on 12/15/2018. A small amount of right pleural fluid seen. These findings were all stable when compared to the prior CAT scan. There is prominent atherosclerosis seen. CT brain showed no acute intracranial abnormality. Echo with 2D Doppler showed EF of 55%, normally functioning mechanical prosthetic valve in aortic position. Respiratory virus panel PCR done was positive for respiratory syncytial virus type B, was negative for all other viruses. He had a white count of 4.6, H and H 12 and 38, and platelet count 125. PT/INR 23 and 2.1. BUN 24 and creatinine 0.7. BNP 290. DISCHARGE MEDICATIONS: 1. Omnicef 300 mg p.o. twice daily for seven days. 2. DuoNeb q.i.d. for 10 days. 3. Coumadin 2 mg p.o. at bedtime. 4. Simvastatin 20 mg p.o. at bedtime. 5. Oxybutynin 5 mg p.o. at bedtime. 6. Omeprazole 20 mg p.o. daily. 7. Gabapentin 800 mg p.o. twice daily. 8. Lasix 20 mg daily. 9. Amiodarone 200 mg daily. 10. Xanax extended release 1 mg p.o. at bedtime. 11. Tylenol 3 q.6 hourly p.r.n. ALLERGIES: ALLERGIC TO VANCOMYCIN. DISCHARGE PLAN: The patient to follow up with his primary care physician at [facility] in 1 week. BRIEF COURSE DURING HOSPITALIZATION: The patient initially came to ER with complaints of cough and shortness of breath. He also apparently fell a few days prior to arrival. He has had these symptoms for 4 days prior to arrival. In view of this history and the patient being a little lethargic on arrival with confusion as well likely acute metabolic encephalopathy, the patient was admitted to hospital. He has had a CT chest done, which showed a chronic infiltrate in the right lung, which was similar to when compared to a prior CAT scan done in 2019. Also, the patient's echo did not reveal any significant valvular changes except for prosthetic mechanical valve, which was in the aortic position and was functioning normal. His influenza A and B antigens, nasopharyngeal swab was negative, but a respiratory virus panel PCR obtained was positive for respiratory syncytial virus type B. He has responded well during his brief stay here. He is advised to continue nebulizations on discharge and antibiotics for another week. He is hemodynamically stable and will be shortly discharged home. The patient is advised to follow up with his primary care physician in 1 week. Home health with PT will be arranged in the morning. He needs to continue all other medications as before. Prior to discharge, he was ambulating to the bedside commode and to the bathroom inside his room and is tolerating oral solid diet. I have given complete updates to patient's son prior to discharge. Job ID: [id number]
--- NOTE | 2019-07-06 11:20 | PQF ---
UMBERTO BROOKS VINAYA KUMAR MD [id number] -B- [id number] CLINICAL DOCUMENTATION CLARIFICATION FORM: POST DISCHARGE Addendum to original discharge summary date: ____ Late entry note date: __ DATE:07/06/2019 ATTN:TOM TORIBIO MD Please exercise your independent, professional judgment in responding to the clarification form. Clinical indicators are provided on the bottom of this form for your review Please check appropriate box(s): [ ] Aspiration Pneumonia [ x] Pneumonia CAP with prior viral illness [ ] Other diagnosis [ ] Unable to determine In addition, please specify: Present on Admission (POA): [ x ] Yes [ ] No [ ] Unable to determine For continuity of documentation, please document condition throughout progress notes and discharge summary. Thank You. CLINICAL INDICATORS - SIGNS / SYMPTOMS / LABS Cough and congestion and fell a couple of days ago-Documented in H&p on 06/29 by Sanjeev Sherman MD Still has cough and is unable to clear secretions with ratting in his throat- Documented in hospitalist progress note -07/02 by Tom Toribio MD Pneumonia Qualifiers; Pneumonia type:aspiration pneumonia, Aspiration pneumonia type : unspecified , Laterality:right, Lung location:Lower lobe of lung -Documented in hospitalist progress note -07/02 by Tom Toribio MD Old CT chest immagings were reviewed has chr opacity in right lower zone- Documented in hospitalist progress note -07/02 by Tom Toribio MD 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, unclear if he has aspiration issues , will get speech eval -Documented in hospitalist progress note -07/02 by Tom Toribio MD Acute hypoxic respiratory failure-Documented in hospitalist progress note - by Tom Toribio MD RISK FACTORS Pneumonia Qualifiers; Pneumonia type:aspiration pneumonia, Aspiration pneumonia type : unspecified , Laterality:right, Lung location:Lower lobe of lung -Documented in hospitalist progress note -07/02 by Tom Toribio MD TREATMENTS: On Zithromax and ceftriaxone will add steroids , nebs-Documented in hospitalist progress note -07/02 by Tom Toribio MD [employer] (This form is maintained as a part of the permanent medical record) 2014 [employer]. All Rights Reserved [email or web address]
--- NOTE | 2019-07-13 10:50 | PQF ---
UMBERTO BROOKS VINAYA KUMAR MD [id number] -B- [id number] CLINICAL DOCUMENTATION CLARIFICATION FORM: POST DISCHARGE Addendum to original discharge summary date: ____ Late entry note date: __ DATE:07/13/2019 ATTN: DES NIEVES MD Please exercise your independent, professional judgment in responding to the clarification form. Clinical indicators are provided on the bottom of this form for your review Please check appropriate box(s): HEART FAILURE: A. TYPE: [ ] Systolic / HFrEF [ ] Diastolic / HFpEF [ ] Combined Systolic / Diastolic B. ACUITY [ ] Acute [ ] Acute on Chronic [ ] Chronic [ x ] NO HEART FAILURE [ ] Other diagnosis [ ] Unable to determine In addition, please specify: Present on Admission (POA): [ ] Yes [ ] No [ ] Unable to determine For continuity of documentation, please document condition throughout progress notes and discharge summary. Thank You. CLINICAL INDICATORS - SIGNS / SYMPTOMS / LABS Nonpitting edema-documented in H&P on 06/29 by Sanjeev leal MD CXR concerning for CHF exacerbation -Documented in Event note By Jaimie SPRAGUE ECHO with 2D Doppler showed EF of 55% -Documented in discharge summary on 07/03 by Malu Torrez MD BNP-Documented in discharge summary on 07/03 by Malu Torrez MD RISKS: HTN-Documented in discharge summary on 07/03 by Malu Torrez MD History of paroxysmal atrial fibrillation -Documented in discharge summary on by Malu Torrez MD History of aortic valve replacement -Documented in discharge summary on 07/03 by Malu Torrez MD [employer] Win[employer] ViewerTREATMENTS: Will give lasix 20 mg IV x1--Documented in Event note By Jaimie SPRAGUE Continue to monitor O2 last--Documented in Event note By Jaimie SPRAGUE Lasix 20 mg daily-Documented in discharge summary on 07/03 by Malu Torrez MD (This form is maintained as a part of the permanent medical record) 2014 [employer]. All Rights Reserved [email or web address]
== END 2019-07-04 11:25 | disposition home health service (06) | DRG 193 ==
LOC: ERS 13:24 → T4-B 20:15 → OBSVTOIN 20:15
PROVIDERS: ADMIT Emergency Medicine; ATTEND Emergency Medicine
DX: J18.8 Other pneumonia, unspecified organism (principal); J96.01 Acute respiratory failure with hypoxia; G93.41 Metabolic encephalopathy; I10 Essential (primary) hypertension; E78.5 Hyperlipidemia, unspecified; J20.5 Acute bronchitis due to respiratory syncytial virus; I48.0 Paroxysmal atrial fibrillation; Z95.2 Presence of prosthetic heart valve; B97.4 Respiratory syncytial virus as the cause of diseases classified elsewhere; R26.9 Unspecified abnormalities of gait and mobility; I25.2 Old myocardial infarction; F32.9 Major depressive disorder, single episode, unspecified; Z90.49 Acquired absence of other specified parts of digestive tract; Z79.01 Long term (current) use of anticoagulants; Z88.1 Allergy status to other antibiotic agents
CPT/HCPCS: 36415; 70450; 71045; 71250; 80048; 80053; 82805; 83605; 83880; 85025; 85610; 87633; 87804; 90471; 90662; 93306; 94640; 96365; 96366; G0008; J0456; J0696; J1940; J2930; J3490; J7050; J7512; J7620

== ENCOUNTER 2019-09-01 12:54 | Outpatient (CLI) | payer MEDICARE, MEDICAID ==
[~2019-09-01 12:54] MED LIST changes: -ISOVUE-370 76%-LOCM 1 ML ONE; +Iopamidol 370 76% 100 ML VIAL ONE
--- NOTE | 2019-09-01 17:11 | CT ---
CT ABDOMEN AND PELVIS PERFORMED WITH AND WITHOUT CONTRAST ENHANCEMENT: History: Hematuria. Benign prostatic hyperplasia with lower urinary tract symptoms, microhematuria, U TI. Comparison: CT chest 06-30-2019, CT abdomen/pelvis performed 11-30-16. FINDINGS: There is persistent right sided pleural effusion and what appears to be rounded atelectasis within th e right lung base. There are some chronic appearing changes in the left base. The liver and spleen show no focal abnormalities. Liver has a somewhat unusual shape, possibly relate d to surgery or atrophy. The gallbladder is absent. The pancreas is atrophic. Small hypodensity withi n the spleen is compatible with a cyst and is stable. Right and left adrenal glands are normal. No renal calculi are demonstrated. There are hypodense lesi ons involving both kidneys and one small subcentimeter hyperdense area within the left kidney which m ay represent a small hemorrhagic cyst. All of these changes appear similar to the previous 2017 exam. There is no obstruction. There is no significant periaortic or mesenteric adenopathy. CT PELVIS PERFORMED WITH AND WITHOUT CONTRAST ENHANCEMENT: Bladder appears mildly distended. The prostate does not appear significantly enlarged. Fat containing right inguinal hernia is seen. No evidence of any significant adenopathy or mass. There are arthriti c changes of the spine. IMPRESSION: 1. Stable right sided pleural effusion and what appears to be rounded atelectasis of the right lower lobe. 2. Post cholecystectomy change. 3. Hypodensities involving both kidneys which are felt to be stable as compared to the 2017 study. No renal calculi or obstruction. POS: [facility]
== END 2019-09-01 12:55 | disposition home or self-care (01) ==
LOC: CT 12:54
PROVIDERS: ATTEND Urology
DX: N40.1 Benign prostatic hyperplasia with lower urinary tract symptoms (principal); R31.29 Other microscopic hematuria; J90 Pleural effusion, not elsewhere classified; N28.89 Other specified disorders of kidney and ureter; Z95.2 Presence of prosthetic heart valve; Z87.440 Personal history of urinary (tract) infections; Z90.49 Acquired absence of other specified parts of digestive tract
CPT/HCPCS: 74178; 82565; Q9967

== ENCOUNTER 2022-08-08 18:30 | Inpatient (IN) | payer MEDICARE, MEDICAID ==
[2022-08-08 19:40] LABS: #Lymphocytes 0.9 thou/uL (1.20-3.40); #Monocytes 0.5 thou/uL (0.11-0.59); #Neutrophils 2.7 thou/uL (1.40-6.50); %Basophils 0.9 % (0.0-1.0); %Eosinophils 0.6 % (0.0-10.0); %Lymphocytes 21.8 % (21.0-51.0); %Monocytes 12.1 % (0.0-10.0); %Neutrophils 64.7 % (42.0-75.0); Hemoglobin 14.3 g/dL (14.0-18.0); Mean Corpuscular HGB CONC 34.2 g/dL (32.0-36.0); Mean Corpuscular Hemoglobin 33.4 pg (27.0-31.0); Mean Corpuscular Volume 97.8 fl (78.0-98.0); Platelet Count 123 10x3/uL (130-400); RBC Distribution Width 13.1 % (11.5-14.5); Red Blood Cell (RBC) Count 4.29 mill/uL (4.70-6.10); White Blood Cell (WBC) Count 4.1 10x3/uL (4.8-10.8)
[2022-08-08 20:03] LABS: ALT (SGPT) Less than 7 U/L (8-55); AST (SGOT) 17 U/L (5-34); Albumin 3.3 g/dL (3.4-4.8); Alkaline Phosphatase 81 U/L (40-110); Anion Gap 11 mmol/L (10-20); BUN (Urea Nitrogen) 19 mg/dL (8.4-25.7); Bilirubin, Total 0.5 mg/dL (0.2-1.2); Calc. Creatinine Clearance 0 mL/min (70-130); Calcium 8.7 mg/dL (7.8-10.44); Carbon Dioxide 28 mmol/L (23-31); Chloride 104 mmol/L (98-107); Estimated GFR 84; Globulin 3.1 g/dL (2.4-3.5); Glucose 105 mg/dL (83-110); Potassium 4.1 mmol/L (3.5-5.1); Protein, Total 6.4 g/dL (5.8-8.1); Sodium 139 mmol/L (136-145)
[2022-08-08] MEDS ORDERED: cefTRIAXone (ROCEPHIN) 1 GM VIAL ONE (20:36)
[2022-08-08] MEDS ORDERED: Senokot S 8.6-50 MG TAB PO PRN (22:47)
[2022-08-08] MEDS ORDERED: Ondansetron ODT 4 MG TAB PO PRN (22:47)
[2022-08-08] MEDS ORDERED: Doxycycline 100 MG CAP PO SCH (23:00)
[2022-08-08 23:20] LABS: INR-International Normal Ratio 1.9
[2022-08-08 23:21] LABS: PTT 51.7 sec (22.9-36.1)
[2022-08-09 03:17] VITALS: BMI 31.9
[2022-08-09] MEDS: Furosemide 20 MG TAB PO SCH (08:05)
[2022-08-09] MEDS: Doxycycline 100 MG CAP PO SCH ×2 (08:05→20:33)
[2022-08-09 08:30] LABS: #Lymphocytes 0.9 thou/uL (1.20-3.40); #Monocytes 0.6 thou/uL (0.11-0.59); #Neutrophils 3.6 thou/uL (1.40-6.50); %Basophils 0.5 % (0.0-1.0); %Eosinophils 0.6 % (0.0-10.0); %Lymphocytes 18.3 % (21.0-51.0); %Monocytes 10.7 % (0.0-10.0); Hemoglobin 13.3 g/dL (14.0-18.0); Mean Corpuscular HGB CONC 32.6 g/dL (32.0-36.0); Mean Corpuscular Hemoglobin 31.3 pg (27.0-31.0); Mean Corpuscular Volume 95.8 fl (78.0-98.0); Platelet Count 133 10x3/uL (130-400); RBC Distribution Width 13.1 % (11.5-14.5); Red Blood Cell (RBC) Count 4.25 mill/uL (4.70-6.10); White Blood Cell (WBC) Count 5.1 10x3/uL (4.8-10.8)
[2022-08-09 08:50] LABS: Anion Gap 11 mmol/L (10-20); BUN (Urea Nitrogen) 16 mg/dL (8.4-25.7); Calc. Creatinine Clearance 85 mL/min (70-130); Calcium 8.6 mg/dL (7.8-10.44); Carbon Dioxide 26 mmol/L (23-31); Chloride 106 mmol/L (98-107); Estimated GFR 89; Glucose 86 mg/dL (83-110); Potassium 3.7 mmol/L (3.5-5.1); Sodium 139 mmol/L (136-145)
[2022-08-09] MEDS ORDERED: methylPREDNISolone Sod Succ 40 MG VIAL IVP SCH (09:00)
[2022-08-09 13:21] LABS: INR-International Normal Ratio 1.5; Prothrombin Time 18.5 sec (12.0-14.7)
[2022-08-09] MEDS ORDERED: Furosemide 40 MG/4 ML VIAL SLOW IVP SCH (15:30)
[2022-08-09] MEDS ORDERED: Warfarin Sodium 2 MG TAB PO SCH (17:00)
[2022-08-09] MEDS: Acetaminophen 325 MG TAB PO PRN (17:20)
[2022-08-09] MEDS: cefTRIAXone\\ROCEPHIN 1 GM in Sodium Chloride 0.9% 100 ML IVPB SCH (20:31)
[2022-08-09] MEDS: Benzonatate 100 MG CAP PO SCH (20:33)
[2022-08-09] MEDS: Atorvastatin Calcium 10 MG TAB PO SCH (20:33)
[2022-08-09] MEDS ORDERED: ALPRAZOLAM 1 MG PO SCH (21:00)
[2022-08-10 06:50] LABS: #Lymphocytes 0.9 thou/uL (1.20-3.40); #Monocytes 0.7 thou/uL (0.11-0.59); #Neutrophils 4.5 thou/uL (1.40-6.50); %Basophils 0.4 % (0.0-1.0); %Eosinophils 0.2 % (0.0-10.0); %Monocytes 11.1 % (0.0-10.0); %Neutrophils 73.4 % (42.0-75.0); Hemoglobin 14.5 g/dL (14.0-18.0); Mean Corpuscular HGB CONC 33.1 g/dL (32.0-36.0); Mean Corpuscular Hemoglobin 31.5 pg (27.0-31.0); Mean Corpuscular Volume 95.1 fl (78.0-98.0); Platelet Count 152 10x3/uL (130-400); RBC Distribution Width 12.9 % (11.5-14.5); Red Blood Cell (RBC) Count 4.59 mill/uL (4.70-6.10); White Blood Cell (WBC) Count 6.2 10x3/uL (4.8-10.8)
[2022-08-10 07:00] LABS: INR-International Normal Ratio 1.3; Prothrombin Time 16.9 sec (12.0-14.7)
[2022-08-10 07:10] LABS: Anion Gap 14 mmol/L (10-20); BUN (Urea Nitrogen) 18 mg/dL (8.4-25.7); Calc. Creatinine Clearance 70 mL/min (70-130); Calcium 9.4 mg/dL (7.8-10.44); Carbon Dioxide 30 mmol/L (23-31); Chloride 100 mmol/L (98-107); Estimated GFR 84; Glucose 98 mg/dL (83-110); Potassium 4.3 mmol/L (3.5-5.1); Sodium 140 mmol/L (136-145)
[2022-08-10] MEDS: methylPREDNISolone Sod Succ 40 MG VIAL IVP SCH (09:45)
[2022-08-10] MEDS: Tamsulosin HCl 0.4 MG CAP PO SCH (09:45)
[2022-08-10] MEDS: Doxycycline 100 MG CAP PO SCH ×2 (09:46→21:06)
[2022-08-10] MEDS: Furosemide 20 MG TAB PO SCH (09:46)
[2022-08-10] MEDS: Benzonatate 100 MG CAP PO SCH ×3 (09:46→21:06)
[2022-08-10] MEDS ORDERED: Furosemide 40 MG/4 ML VIAL SLOW IVP SCH (15:00)
[2022-08-10] MEDS: Warfarin Sodium 3 MG TAB PO SCH (18:11)
[2022-08-10] MEDS: cefTRIAXone\\ROCEPHIN 1 GM in Sodium Chloride 0.9% 100 ML IVPB SCH (20:06)
[2022-08-10] MEDS: Atorvastatin Calcium 10 MG TAB PO SCH (21:06)
[2022-08-10] MEDS: Acetaminophen 325 MG TAB PO PRN (21:06)
[2022-08-10] MEDS: ALPRAZOLAM 0.5 MG PO SCH (21:26)
[2022-08-11 07:22] LABS: #Monocytes 0.8 thou/uL (0.11-0.59); %Basophils 0.4 % (0.0-1.0); %Eosinophils 0.1 % (0.0-10.0); %Lymphocytes 16.5 % (21.0-51.0); %Monocytes 13.7 % (0.0-10.0); %Neutrophils 69.3 % (42.0-75.0); Hemoglobin 15.2 g/dL (14.0-18.0); Mean Corpuscular HGB CONC 34.8 g/dL (32.0-36.0); Mean Corpuscular Hemoglobin 32.7 pg (27.0-31.0); Mean Corpuscular Volume 93.8 fl (78.0-98.0); Mean Platelet Volume 8.8 fL (7.4-10.4); Platelet Count 151 10x3/uL (130-400); RBC Distribution Width 12.9 % (11.5-14.5); Red Blood Cell (RBC) Count 4.66 mill/uL (4.70-6.10); White Blood Cell (WBC) Count 5.8 10x3/uL (4.8-10.8)
[2022-08-11 07:34] LABS: INR-International Normal Ratio 1.4; Prothrombin Time 17.3 sec (12.0-14.7)
[2022-08-11 07:44] LABS: Anion Gap 15 mmol/L (10-20); BUN (Urea Nitrogen) 23 mg/dL (8.4-25.7); Calc. Creatinine Clearance 62 mL/min (70-130); Calcium 9.7 mg/dL (7.8-10.44); Carbon Dioxide 32 mmol/L (23-31); Chloride 99 mmol/L (98-107); Estimated GFR 75; Glucose 91 mg/dL (83-110); Potassium 3.8 mmol/L (3.5-5.1); Sodium 142 mmol/L (136-145)
[2022-08-11] MEDS: Benzonatate 100 MG CAP PO SCH ×3 (10:05→20:31)
[2022-08-11] MEDS: Tamsulosin HCl 0.4 MG CAP PO SCH (10:05)
[2022-08-11] MEDS: Furosemide 20 MG TAB PO SCH (10:06)
[2022-08-11] MEDS: Doxycycline 100 MG CAP PO SCH ×2 (10:06→20:31)
[2022-08-11] MEDS: methylPREDNISolone Sod Succ 40 MG VIAL IVP SCH (10:07)
[2022-08-11] MEDS: Warfarin Sodium 3 MG TAB PO SCH (17:50)
[2022-08-11] MEDS: cefTRIAXone\\ROCEPHIN 1 GM in Sodium Chloride 0.9% 100 ML IVPB SCH (20:31)
[2022-08-11] MEDS: Atorvastatin Calcium 10 MG TAB PO SCH (20:31)
[2022-08-11] MEDS: Melatonin 3 MG TAB PO PRN (20:32)
[2022-08-12] MEDS: ALPRAZOLAM 0.5 MG PO SCH ×2 (00:58→20:10)
[2022-08-12] MEDS: Acetaminophen 325 MG TAB PO PRN ×2 (00:58→20:10)
[2022-08-12 07:21] LABS: #Monocytes 0.6 thou/uL (0.11-0.59); #Neutrophils 3.3 thou/uL (1.40-6.50); %Basophils 0.2 % (0.0-1.0); %Eosinophils 0.3 % (0.0-10.0); %Lymphocytes 19.7 % (21.0-51.0); %Monocytes 12.3 % (0.0-10.0); %Neutrophils 67.5 % (42.0-75.0); Mean Corpuscular HGB CONC 33.5 g/dL (32.0-36.0); Mean Corpuscular Hemoglobin 31.5 pg (27.0-31.0); Mean Platelet Volume 8.9 fL (7.4-10.4); Platelet Count 164 10x3/uL (130-400); RBC Distribution Width 12.7 % (11.5-14.5); Red Blood Cell (RBC) Count 4.77 mill/uL (4.70-6.10); White Blood Cell (WBC) Count 4.9 10x3/uL (4.8-10.8)
[2022-08-12 07:36] LABS: INR-International Normal Ratio 1.6; Prothrombin Time 19.5 sec (12.0-14.7)
[2022-08-12 07:48] LABS: Anion Gap 13 mmol/L (10-20); BUN (Urea Nitrogen) 31 mg/dL (8.4-25.7); Calc. Creatinine Clearance 74 mL/min (70-130); Calcium 9.4 mg/dL (7.8-10.44); Carbon Dioxide 27 mmol/L (23-31); Chloride 104 mmol/L (98-107); Estimated GFR 85; Glucose 90 mg/dL (83-110); Potassium 3.8 mmol/L (3.5-5.1); Sodium 140 mmol/L (136-145)
[2022-08-12] MEDS: methylPREDNISolone Sod Succ 40 MG VIAL IVP SCH (09:20)
[2022-08-12] MEDS: Furosemide 20 MG TAB PO SCH (09:21)
[2022-08-12] MEDS: Tamsulosin HCl 0.4 MG CAP PO SCH (09:21)
[2022-08-12] MEDS: Doxycycline 100 MG CAP PO SCH ×2 (09:21→20:10)
[2022-08-12] MEDS: Benzonatate 100 MG CAP PO SCH ×3 (09:21→20:10)
[2022-08-12] MEDS: Warfarin Sodium 3 MG TAB PO SCH (16:47)
[2022-08-12] MEDS: Atorvastatin Calcium 10 MG TAB PO SCH (20:10)
[2022-08-12] MEDS: Melatonin 3 MG TAB PO PRN (21:57)
[2022-08-13 07:29] LABS: #Basophils 0.1 thou/uL (0.0-0.2); #Lymphocytes 0.9 thou/uL (1.20-3.40); #Monocytes 0.7 thou/uL (0.11-0.59); #Neutrophils 4.1 thou/uL (1.40-6.50); %Basophils 1.1 % (0.0-1.0); %Eosinophils 0.3 % (0.0-10.0); %Lymphocytes 16.1 % (21.0-51.0); %Monocytes 11.8 % (0.0-10.0); %Neutrophils 70.7 % (42.0-75.0); Hemoglobin 15.2 g/dL (14.0-18.0); Mean Corpuscular HGB CONC 33.5 g/dL (32.0-36.0); Mean Corpuscular Hemoglobin 31.3 pg (27.0-31.0); Mean Corpuscular Volume 93.6 fl (78.0-98.0); Mean Platelet Volume 8.7 fL (7.4-10.4); Platelet Count 172 10x3/uL (130-400); RBC Distribution Width 12.6 % (11.5-14.5); Red Blood Cell (RBC) Count 4.87 mill/uL (4.70-6.10); White Blood Cell (WBC) Count 5.8 10x3/uL (4.8-10.8)
[2022-08-13 07:37] LABS: INR-International Normal Ratio 1.8; Prothrombin Time 21.8 sec (12.0-14.7)
[2022-08-13 07:55] VITALS: BP 137/62; TEMP 97.7
[2022-08-13 08:25] LABS: Anion Gap 11 mmol/L (10-20); BUN (Urea Nitrogen) 30 mg/dL (8.4-25.7); Calc. Creatinine Clearance 74 mL/min (70-130); Calcium 9.1 mg/dL (7.8-10.44); Carbon Dioxide 29 mmol/L (23-31); Chloride 103 mmol/L (98-107); Estimated GFR 85; Glucose 87 mg/dL (83-110); Potassium 3.8 mmol/L (3.5-5.1); Sodium 139 mmol/L (136-145)
[2022-08-13] MEDS: Doxycycline 100 MG CAP PO SCH (09:16)
[2022-08-13] MEDS: methylPREDNISolone Sod Succ 40 MG VIAL IVP SCH (09:16)
[2022-08-13] MEDS: Furosemide 20 MG TAB PO SCH (09:17)
[2022-08-13] MEDS: Tamsulosin HCl 0.4 MG CAP PO SCH (09:17)
[2022-08-13] MEDS: Benzonatate 100 MG CAP PO SCH (09:17)
== END 2022-08-13 15:32 | DRG 194 ==
LOC: ERS 18:30 → ERHOLD 21:18 → T4-B 08-09 02:36 → OBSVTOIN 08-09 15:31
PROVIDERS: ADMIT Student in an Organized Health Care Education/Training Program; ATTEND Hospitalist
DX: J18.9 Pneumonia, unspecified organism (principal); F03.93 Unspecified dementia, unspecified severity, with mood disturbance; I25.10 Atherosclerotic heart disease of native coronary artery without angina pectoris; I11.0 Hypertensive heart disease with heart failure; I50.9 Heart failure, unspecified; I27.20 Pulmonary hypertension, unspecified; N40.0 Benign prostatic hyperplasia without lower urinary tract symptoms; E78.00 Pure hypercholesterolemia, unspecified; Z79.899 Other long term (current) drug therapy; Z79.01 Long term (current) use of anticoagulants; Z95.1 Presence of aortocoronary bypass graft; Z95.2 Presence of prosthetic heart valve; Z88.1 Allergy status to other antibiotic agents; I25.2 Old myocardial infarction; Z87.891 Personal history of nicotine dependence; Z90.49 Acquired absence of other specified parts of digestive tract
CPT/HCPCS: 36415; 36416; 71045; 80048; 80053; 83605; 83880; 84484; 85025; 85610; 85730; 87040; 93005; 93306; 94640; 96374; 96375; G0378; J0696; J1940; J2920; J3490; J7611

== ENCOUNTER 2023-12-13 14:12 | Inpatient (IN) | payer MEDICARE, MEDICAID ==
[~2023-12-13 14:12] MED LIST changes: -Iopamidol 370 76% 100 ML VIAL ONE; +Iopamidol-370 76% 500 ML MDV (1 ML CHARGE) ONE
[2023-12-13] MEDS ORDERED: Ondansetron PF 4 MG/2 ML Vial ONE (14:46)
[2023-12-13 15:10] LABS: #Basophils 0.03 10x3/uL (0.0-0.2); %Basophils 0.5 % (0.0-1.0); %Eosinophils 2.5 % (0.0-10.0); %Lymphocytes 10.3 % (21.0-51.0); %Monocytes 9.3 % (0.0-10.0); %Neutrophils 77.2 % (42.0-75.0); Hematocrit 44.9 % (42.0-52.0); Mean Corpuscular HGB CONC 33.4 g/dL (32.0-36.0); Mean Corpuscular Hemoglobin 31.1 pg (27.0-31.0); Mean Corpuscular Volume 93.2 fL (78.0-98.0); Mean Platelet Volume 11.1 fL (7.4-10.4); Platelet Count 169 10x3/uL (130-400); RBC Distribution Width 14.8 % (11.5-14.5); Red Blood Cell (RBC) Count 4.82 mill/uL (4.70-6.10)
[2023-12-13 15:28] LABS: ALT (SGPT) 7 U/L (8-55); AST (SGOT) 19 U/L (5-34); Albumin 3.3 g/dL (3.4-4.8); Alkaline Phosphatase 88 U/L (40-110); Anion Gap 12 mmol/L (10-20); BUN (Urea Nitrogen) 18 mg/dL (8.4-25.7); Bilirubin, Total 0.6 mg/dL (0.2-1.2); Calc. Creatinine Clearance 0 mL/min (70-130); Calcium 9.1 mg/dL (7.8-10.44); Carbon Dioxide 30 mmol/L (23-31); Chloride 103 mmol/L (98-107); Estimated GFR 83; Globulin 3.8 g/dL (2.4-3.5); Glucose 91 mg/dL (83-110); Potassium 3.7 mmol/L (3.5-5.1); Protein, Total 7.1 g/dL (5.8-8.1); Sodium 141 mmol/L (136-145)
[2023-12-13 15:33] LABS: Troponin I 0.033 ng/mL (< 0.028)
[2023-12-13] MEDS ORDERED: Cefepime 2 GM VIAL ONE (16:57)
[2023-12-13] MEDS ORDERED: Sodium Chloride 0.9% 100 ML ONE (16:57)
[2023-12-13] MEDS ORDERED: Acetaminophen 650 MG Suppository PR PRN (17:40)
[2023-12-13] MEDS ORDERED: Ondansetron ODT 4 MG TAB SL PRN (17:45)
[2023-12-13] MEDS ORDERED: Acetaminophen 325 MG TAB PO PRN (17:45)
[2023-12-13] MEDS ORDERED: Ondansetron PF 4 MG/2 ML Vial IVP PRN (17:45)
[2023-12-13] MEDS ORDERED: metroNIDAZOLE 500 MG (100 mL) BAG ONE (18:10)
[2023-12-13 18:22] LABS: Bacteria/HPF None Seen HPF (None Seen); Bilirubin Negative (Negative); Blood, Urine Trace (Negative); CAUTI Indications for Culture Alt mental st,lethar; Clarity Clear (Clear); Glucose, Urine (Dipstick) Normal (Negative); Ketone, Urine Negative (Negative); Leukocyte Negative Leu/uL (Negative); Nitrite Negative (Negative); Protein, Urine (Dipstick) Negative (Neg-Trace); Squamous Epithelial 0-3 HPF (0-3); WBC/HPF 0-3 HPF (0-3); pH, Urine 6.5 (5.0-9.0)
[2023-12-13 18:25] LABS: Specific Gravity, Urine 1.044 (1.002-1.036)
[2023-12-13 18:26] LABS: Urine Culture Reflex No No
[2023-12-13 20:03] LABS: Magnesium 1.9 mg/dL (1.6-2.6)
[2023-12-13 20:09] LABS: Troponin I 0.024 ng/mL (< 0.028)
[2023-12-13] MEDS: traMADol HCl 50 MG TAB PO PRN (21:27)
[2023-12-13] MEDS: Piperacillin/Tazobactam 3.375 GM in Sodium Chloride 0.9% 100 ML IVPB SCH ×2 (21:27→23:08)
[2023-12-13] MEDS: Sodium Chloride 0.9% 1,000 ML IV SCH (21:27)
[2023-12-13] MEDS: Tamsulosin HCl 0.4 MG CAP PO SCH (21:27)
[2023-12-13] MEDS: Senokot S 8.6-50 MG TAB PO PRN (21:27)
[2023-12-13] MEDS: Famotidine/PF 20 mg/2ml Vial SLOW IVP SCH (21:27)
[2023-12-13] MEDS: Fleet Saline Enema 133 ML BOT PR SCH (21:28)
[2023-12-13] MEDS: Ipratropium/Albuterol 3 ML NEB NEB SCH (21:33)
[2023-12-13 21:49] VITALS: BMI 29.9
[2023-12-13] MEDS ORDERED: metroNIDAZOLE 500 MG in Premix 1 BAG IVPB SCH (22:00)
[2023-12-14 00:55] LABS: Troponin I 0.023 ng/mL (< 0.028)
[2023-12-14] MEDS: metroNIDAZOLE 500 MG in Premix 1 BAG IVPB SCH (02:27)
[2023-12-14] MEDS: Acetaminophen 325 MG TAB PO PRN (04:07)
[2023-12-14 06:38] LABS: #Basophils Less than 0.03 10x3/uL (0.0-0.2); %Basophils 0.4 % (0.0-1.0); %Eosinophils 2.2 % (0.0-10.0); %Lymphocytes 12.8 % (21.0-51.0); %Monocytes 10.6 % (0.0-10.0); %Neutrophils 73.8 % (42.0-75.0); Hematocrit 38.3 % (42.0-52.0); Hemoglobin 12.6 g/dL (14.0-18.0); Mean Corpuscular HGB CONC 32.9 g/dL (32.0-36.0); Mean Corpuscular Hemoglobin 30.2 pg (27.0-31.0); Mean Corpuscular Volume 91.8 fL (78.0-98.0); Mean Platelet Volume 11.2 fL (7.4-10.4); Platelet Count 153 10x3/uL (130-400); Red Blood Cell (RBC) Count 4.17 mill/uL (4.70-6.10)
[2023-12-14 07:01] LABS: ALT (SGPT) 7 U/L (8-55); AST (SGOT) 16 U/L (5-34); Albumin 2.6 g/dL (3.4-4.8); Alkaline Phosphatase 67 U/L (40-110); Anion Gap 10 mmol/L (10-20); BUN (Urea Nitrogen) 13 mg/dL (8.4-25.7); Bilirubin, Total 0.6 mg/dL (0.2-1.2); Calc. Creatinine Clearance 82 mL/min (70-130); Calcium 8.2 mg/dL (7.8-10.44); Carbon Dioxide 27 mmol/L (23-31); Chloride 107 mmol/L (98-107); Estimated GFR 89; Globulin 3.1 g/dL (2.4-3.5); Glucose 85 mg/dL (83-110); Potassium 3.9 mmol/L (3.5-5.1); Protein, Total 5.7 g/dL (5.8-8.1); Sodium 140 mmol/L (136-145)
[2023-12-14 09:04] LABS: INR-International Normal Ratio 1.9; Prothrombin Time 21.6 sec (12.0-14.7)
[2023-12-14] MEDS: Pantoprazole DR 40 MG TAB PO SCH (09:32)
[2023-12-14] MEDS: Tamsulosin HCl 0.4 MG CAP PO SCH (09:32)
[2023-12-14] MEDS: Enoxaparin 40 MG (0.4 mL) SYRINGE SC SCH (09:33)
[2023-12-14] MEDS: Linezolid 600 MG in Premix 1 BAG IVPB SCH ×2 (13:02→22:19)
[2023-12-14] MEDS: Ondansetron PF 4 MG/2 ML Vial IVP PRN (14:35)
[2023-12-14] MEDS: Atorvastatin Calcium 10 MG TAB PO SCH (22:17)
[2023-12-14] MEDS: Melatonin 3 MG TAB PO PRN (22:59)
[2023-12-15 05:39] LABS: Hematocrit 39.5 % (42.0-52.0); Hemoglobin 13.1 g/dL (14.0-18.0); Mean Corpuscular HGB CONC 33.2 g/dL (32.0-36.0); Mean Corpuscular Volume 93.4 fL (78.0-98.0); Mean Platelet Volume 11.3 fL (7.4-10.4); Platelet Count 156 10x3/uL (130-400); RBC Distribution Width 14.8 % (11.5-14.5); Red Blood Cell (RBC) Count 4.23 mill/uL (4.70-6.10)
[2023-12-15 05:45] LABS: INR-International Normal Ratio 1.6; Prothrombin Time 19.2 sec (12.0-14.7)
[2023-12-15 06:25] LABS: Anion Gap 13 mmol/L (10-20); BUN (Urea Nitrogen) 9 mg/dL (8.4-25.7); Calc. Creatinine Clearance 71 mL/min (70-130); Calcium 8.9 mg/dL (7.8-10.44); Carbon Dioxide 26 mmol/L (23-31); Chloride 102 mmol/L (98-107); Estimated GFR 85; Glucose 106 mg/dL (83-110); Potassium 3.7 mmol/L (3.5-5.1); Sodium 137 mmol/L (136-145)
[2023-12-16 17:35] LABS: INR-International Normal Ratio 1.3; Prothrombin Time 16.6 sec (12.0-14.7)
[2023-12-16] MEDS: Enoxaparin 80 MG (0.8 mL) SYRINGE SC SCH (20:44)
[2023-12-16] MEDS: ALPRAZolam 0.5 MG TAB PO PRN (20:44)
[2023-12-17 05:15] LABS: Hemoglobin 12.9 g/dL (14.0-18.0); Mean Corpuscular HGB CONC 33.1 g/dL (32.0-36.0); Mean Corpuscular Hemoglobin 30.9 pg (27.0-31.0); Mean Corpuscular Volume 93.3 fL (78.0-98.0); Mean Platelet Volume 11.2 fL (7.4-10.4); Platelet Count 154 10x3/uL (130-400); Red Blood Cell (RBC) Count 4.18 mill/uL (4.70-6.10)
[2023-12-17 05:20] LABS: INR-International Normal Ratio 1.3
[2023-12-17 06:00] LABS: Anion Gap 11 mmol/L (10-20); BUN (Urea Nitrogen) 12 mg/dL (8.4-25.7); Calc. Creatinine Clearance 65 mL/min (70-130); Calcium 8.9 mg/dL (7.8-10.44); Carbon Dioxide 29 mmol/L (23-31); Chloride 104 mmol/L (98-107); Estimated GFR 84; Glucose 86 mg/dL (83-110); Potassium 3.7 mmol/L (3.5-5.1); Sodium 140 mmol/L (136-145)
[2023-12-17] MEDS: Warfarin Sodium 2 MG TAB PO SCH (17:47)
[2023-12-17] MEDS: traMADol HCl 50 MG TAB PO SCH (20:10)
[2023-12-17] MEDS: traZODone HCl 150 MG TAB PO SCH (20:10)
[2023-12-17] MEDS: Hyoscyamine SL 0.125 MG TAB PO SCH (20:11)
[2023-12-18 08:19] LABS: INR-International Normal Ratio 1.2; Prothrombin Time 15.4 sec (12.0-14.7)
[2023-12-18] MEDS: Furosemide 20 MG TAB PO SCH (08:44)
[2023-12-18] MEDS ORDERED: Warfarin Sodium 2 MG TAB PO SCH (09:00)
[2023-12-18] MEDS: Ipratropium/Albuterol 3 ML NEB NEB SCH (12:14)
[2023-12-19 06:17] LABS: INR-International Normal Ratio 1.2; Prothrombin Time 14.7 sec (12.0-14.7)
[2023-12-19] MEDS ORDERED: Lidocaine 1% PF 5 ML VIAL ONE (08:33)
[2023-12-19] MEDS ORDERED: Sodium Bicarbonate 0.5 MEQ/ML SDV 10 ML ONE (08:34)
[2023-12-19 12:27] VITALS: BP 149/91; TEMP 97.9
== END 2023-12-19 14:14 | DRG 178 ==
LOC: ERS 14:12 → 2NO 17:40 → T4-A 12-16 14:44
PROVIDERS: ADMIT Internal Medicine; ATTEND Internal Medicine
PROC: 02HV33Z Insertion of Infusion Device into Superior Vena Cava, Percutaneous Approach (ICD-10-PCS; principal; 2023-12-19)
PROC: B518ZZA Fluoroscopy of Superior Vena Cava, Guidance (ICD-10-PCS; 2023-12-19)
PROC: B548ZZA Ultrasonography of Superior Vena Cava, Guidance (ICD-10-PCS; 2023-12-19)
DX: J86.9 Pyothorax without fistula (principal); F03.A3 Unspecified dementia, mild, with mood disturbance; J90 Pleural effusion, not elsewhere classified; E78.5 Hyperlipidemia, unspecified; K59.00 Constipation, unspecified; E86.0 Dehydration; I10 Essential (primary) hypertension; N40.0 Benign prostatic hyperplasia without lower urinary tract symptoms; E78.00 Pure hypercholesterolemia, unspecified; I25.10 Atherosclerotic heart disease of native coronary artery without angina pectoris; I48.0 Paroxysmal atrial fibrillation; R79.89 Other specified abnormal findings of blood chemistry; Z88.1 Allergy status to other antibiotic agents; Z79.899 Other long term (current) drug therapy; Z79.01 Long term (current) use of anticoagulants; Z95.1 Presence of aortocoronary bypass graft; Z87.891 Personal history of nicotine dependence; Z90.49 Acquired absence of other specified parts of digestive tract; Z90.79 Acquired absence of other genital organ(s); Z95.2 Presence of prosthetic heart valve; I25.2 Old myocardial infarction
CPT/HCPCS: 36415; 36416; 36569; 71045; 71250; 74177; 74230; 76937; 77001; 80048; 80053; 83735; 84145; 84484; 85025; 85027; 85610; 86141; 87040; 87081; 89220; 93005; 96365; 96375; C1751; J0692; J1650; J2020; J2405; J2543; J3490; J7030; J7620; Q9967